=== PATIENT | male | born 1985 | race Caucasian/White ===

== ENCOUNTER 2016-09-22 12:05 | Emergency (ER) | payer OTHER ==
[~2016-09-22] VITALS: Ht 185.4 cm; Wt 128.0 kg
[2016-09-22 12:23] VITALS: Ht 185.4 cm; Wt 128.0 kg
--- NOTE | 2016-09-22 14:19 | RADRPT ---
PROCEDURE: XR Chest. CLINICAL INDICATION: chest pain, shortness of breath TECHNIQUE: Single frontal view of the chest was obtained COMPARISON: None FINDINGS: The heart and mediastinum are within normal limits. The lungs are clear. There is no pleural effusion or pneumothorax. RPTAT: AA IMPRESSION: No acute disease. .Blair Collazo MD, MD Date Time Electronically viewed and signed by .Blair Collazo MD, on 09/22/2016 14:19 .S/
[2016-09-22] MEDS ORDERED: LORA-441 PO (14:53)
[2016-09-22 15:24] VITALS: BP 181/83; PULSE 79; RESP 18; TEMP 98.2
--- NOTE | 2016-09-22 15:25 | ERD ---
ER Documentation Chief Complaint Date/Time DATE: 09/22/16 TIME: 15:19 Chief Complaint work related stress/anxiety HPI This is a 31-year-old male that presents to the ER stating that he is very stressed at work. Patient states that he had an accident at work where he braced himself with a copper wire. Patient decided to go to the ER to get a tetanus shot and to make sure he did not have an infection and states that afterwards his colleagues have been harassing him and retaliating against him. Patient states that his boss is constantly supervising him antibiotics and feel very uncomfortable. Patient states that he feels short of breath and lightheaded. He is not sleeping well. He denies any chest pain at this time. She is having problems his secondary to increased stress at work. Patient denies any suicidal ideations. ROS 12 point review of systems was done, all negative except per HPI. Medications Home Meds Active Scripts Lorazepam* (Ativan*) 0.5 Mg Tablet, 0.5 MG PO Q8, #10 TAB Prov:LEDA GONZALES Riccardo 09/22/16 PMhx/Soc Medical and Surgical Hx: pt denies Medical Hx, pt denies Surgical Hx Physical Exam Vitals Vital Signs Date Time Temp Pulse Resp B/P Pulse Ox O2 Delivery O2 Flow Rate FiO2 09/22/16 12:23 98.1 73 20 186/93 99 Physical Exam GENERAL: The patient is well developed and appropriate for usual state of health , in no apparent distress. HEENT: Atraumatic. Conjunctivae are pink. Pupils equal, round, and reactive to light. Extraocular muscles are grossly intact. Bilateral tympanic membranes are clear with no evidence of erythema, effusion or dulling of the light reflex. The oropharynx is clear with no erythema or exudates. NECK: C-spine is soft and supple. There is no cervical lymphadenopathy. CHEST: Clear to auscultation bilaterally. There are no rales, wheezes or rhonchi. HEART: Regular rate and rhythm. No murmurs, clicks, rubs or gallops. ABDOMEN: Soft, nontender and nondistended. Good bowel sounds. No rebound or guarding. No gross peritonitis. No gross organomegaly or masses. No Mason sign or McBurney point tenderness. No pulsatile masses. BACK: No midline or flank tenderness. EXTREMITIES: Equal pulses bilaterally. There is no peripheral clubbing, cyanosis or edema. No focal swelling or erythema. Full range of motion. Grossly neurovascularly intact. NEURO: Alert and oriented. Cranial nerves II through XII are intact. Motor strength in all 4 extremities with 5/5 strength. Sensation grossly intact. Normal speech and gait. SKIN: There is no apparent rash or petechia. The skin is warm and dry. Procedures/MDM Differential diagnosis includes but is not limited to; STEMI, dissection, pneumothorax, PE, esophageal rupture, tamponade, pneumonia, pericarditis, GERD, musculoskeletal, endocarditis, anxiety. At this time this is likely anxiety. Patient appeared very anxious in the room and has a lot of work-related stress. Patient's EKG was normal it was read by Dr. David 71bpm no ST elevation no t wave inversion. Patient's blood pressure was elevated to 186/93. However he does not have hypertensive emergency or urgency. Patient will be sent home with lorazepam. He requested a few days off of work to distress. He has to follow-up with his primary care doctor within 1-2 days or return to ER sooner if symptoms worsen. My medical decision making was discussed with the patient he understands and agrees with plan. Departure Diagnosis: Primary Impression: Anxiety Condition: Stable Patient Instructions: Anxiety Reaction Additional Instructions: Call your primary care doctor TOMORROW for an appointment during the next 1-2 days.See the doctor sooner or return here if your condition worsens before your appointment time. LEDA GONZALES Sep 22, 2016 15:25
== END 2016-09-22 15:20 | disposition home or self-care (01) ==
LOC: FTE 12:05
DX: F41.9 Anxiety disorder, unspecified (principal)
CPT/HCPCS: 71010; 93005